=== PATIENT | female | born 1955 | race Caucasian/White ===

== ENCOUNTER → 2018-04-07 | Day surgery (SDC) | payer BC ==
[~2018-04-07] MED LIST: ADDERALL 20 MG20 MG PO; CRESTOR40 MG PO; FENTANYL CITRATE/PF 100MCG/2 ML INJ ONE; HYDROCODON-ACE1 EAC9 PO; MIDAZOLAM HCL 2 MG/2 ML VIAL ONE; OMEPRAZOLE20 MG PO; OR PHACO EYE KIT ONE; PREOP PHACO EYE KIT ONE; PRISTIQ ER100 MG PO; SIMETHICON40 MG/0.6 PO; ZOLPIDEM TARTRA10 MG PO
--- OUTSIDE RECORDS SUMMARY | 2018-04-07 09:30 | XMS REPORT | Clinical Summary ---
Author Author [facility] Organization [facility] Address Unknown Phone Unavailable Care Team Providers Care Safety Companion Name Role Phone Mumtaz Estrada MD PCP Unavailable Allergies Active Allergy Reactions Severity Noted Date Comments Iodine 08/09/2016 contrast Penicillin G 08/09/2016 Current Medications Prescription Sig. Disp. Refills Start End Date Status Date HYDROcodone-acetaminophen TK 2 TS PO TID 0 07/18/19 Active (NORCO) 10-325 mg per 17 tablet zolpidem (AMBIEN) 10 mg TK 1 T PO QD HS 5 06/29/19 Active tablet 17 PRISTIQ 100 mg 24 hr TK 1 T PO QD 11 07/16/19 Active tablet 17 omeprazole (PriLOSEC) 20 Take 20 mg by mouth Active MG capsule daily. Active Problems No known active problems Encounters Date Type Specialty Care Team Description 07/25/2017 [facility] Radiology Jimbo Tran MD Lumbar radiculopathy Encounter 07/24/2017 Transcribe Radiology Jimbo Tran MD Lumbar radiculopathy Orders (Primary Dx) 07/09/2017 Hospital Radiology Jimbo Tran MD Lumbar radiculopathy Encounter 07/04/2017 Transcribe Access Jimbo Tran MD Lumbar radiculopathy Orders (Primary Dx) 06/11/2017 Hospital Plastic Surgery Sony Wang MD Encounter 06/11/2017 Anesthesia Plastic Surgery Anjel Ojeda MD Event 06/11/2017 Procedure Pass Plastic Surgery 06/11/2017 Surgery Plastic Surgery Sony Wang MD VITRECTOMY, INTERNAL LIMITING MEMBRANE PEEL, GAS FLUID EXCHANE - RIGHT EYE 06/06/2017 Hospital Radiology Mumtaz Estrada MD Lumbar radiculopathy Encounter 06/06/2017 Ancillary Radiology Mumtaz Estrada MD Lumbar radiculopathy Orders 06/04/2017 Procedure Pass Radiology 06/04/2017 Transcribe Access Mumtaz Estrada MD Lumbar radiculopathy Orders (Primary Dx) after 04/06/2017 Family History Medical History Relation Name Comments Lung cancer Father Coronary artery disease Mother Dementia Mother Breast cancer Sister Relation Name Status Comments Father Mother Alive Sister Social History Tobacco Use Types Packs/Day Years Used Date Never Smoker Smokeless Tobacco: Never Used Alcohol Use Drinks/Week oz/Week Comments Yes Couple of glasses of wine daily Sex Assigned at Date Recorded Not on file Last Filed Vital Signs Vital Sign Reading Time Taken Blood Pressure 138/65 07/25/2017 10:16 AM PROFESSOR OF ARCHITECTURE Pulse 68 07/25/2017 11:04 AM PROFESSOR OF ARCHITECTURE Temperature 36.5 C (97.7 F) 07/25/2017 9:31 AM PROFESSOR OF ARCHITECTURE Respiratory Rate 13 07/25/2017 9:19 AM PROFESSOR OF ARCHITECTURE Oxygen Saturation 94% 07/25/2017 11:04 AM PROFESSOR OF ARCHITECTURE Inhaled Oxygen - - Concentration Weight - - Height 154.9 cm (5' 1") 06/11/2017 6:42 AM PROFESSOR OF ARCHITECTURE Body Mass Index - - Plan of Treatment Health Maintenance Due Date Last Done Comments CERVICAL CANCER SCREENING 1974 BREAST CANCER SCREENING 2003 COLON CANCER SCREENING 2003 SHINGRIX VACCINE (#1) 2003 ZOSTER VACCINE 2013 INFLUENZA VACCINE 12/31/2017 Procedures Procedure Name Priority Date/Time Associated Diagnosis Comments HC INJ EPID LUM/SACRAL Routine 07/25/2017 Lumbar radiculopathy Results for this UNI W IMG 9:22 AM PROFESSOR OF ARCHITECTURE procedure are in the results section. CT LUMBAR SPINE WO Routine 07/09/2017 Lumbar radiculopathy Results for this CONTRAST 3:38 PM PROFESSOR OF ARCHITECTURE procedure are in the results section. VITRECTOMY 06/11/2017 Macular hole of right eye 8:00 AM PROFESSOR OF ARCHITECTURE MRI LUMBAR SPINE WO Routine 06/06/2017 Lumbar radiculopathy Results for this CONTRAST 5:10 PM PROFESSOR OF ARCHITECTURE procedure are in the results section. after 04/06/2017 Results * IR Epidural Steroid Injection (07/25/2017 9:22 AM) Narrative Performed At EXAMINATION:IR EPIDURAL STEROID INJECTION [facility] CLINICAL HISTORY:M54.16 Radiculopathylumbar region, M54.16 COMPARISON:None. PROCEDURE After informed consent was obtained, the patient was placed in the prone position on the Fluoroscopy table. IV moderate conscious sedation was administered by means of intravenous injection of Versed and Fentanyl. Continuous monitoring of the vital signs was carried out under my direct supervision during the procedure, and subsequently in the recovery room until the patient was discharged. The patient tolerated the conscious sedation well without side effects or negative outcomes. Face to face sedation time during the procedure was 15 minutes. The back was prepped and draped in the usual manner. Local anesthesia was made by infiltration with 1% Lidocaine. Utilizing real-timeFluoroscopic guidance, and sterile technique a Gauge 25 spinal needle was introduced into the rightneural foramen at the L5-I1gkxod. Injection of a small amount of Omnipaque 240 mg I/ml from a syringe connected to the hub of the needle by means of a short flexible tubing a, after the plunger was pulled back to ensure no air bubbles or blood was within the system, , confirmed the proper position of the needle tipwithin the foramen.No contrast was seen entering the thecal sac or any blood vessels. A mixture of 12mg of Dexamethazone and 1 ml ofBupivacaine 0.75 % was prepared in a small syringe. The syringe was attached by a short flexible tubing to the hub of the needle. The plunger was pulled back to ensure no fluid or blood return and to clear any bubbles in the hub of the needle.2 ml of the mixture were injected into the perineural / foraminal epidural space. The patient tolerated the procedure well without immediate side effects or complications. IMPRESSION: Uneventful fluoroscopically guided right L5-S1 transforaminal epidural steroid injection block of the right L5 nerve root. Total fluoroscopy time 31 seconds. 1 image was saved. [facility]-[id number] Procedure Note Hm Interface, Radiology Results Incoming - 07/28/2017 11:59 AM PROFESSOR OF ARCHITECTURE EXAMINATION: IR EPIDURAL STEROID INJECTION CLINICAL HISTORY: M54.16 Radiculopathy lumbar region, M54.16 COMPARISON: None. PROCEDURE After informed consent was obtained, the patient was placed in the prone position on the Fluoroscopy table. IV moderate conscious sedation was administered by means of intravenous injection of Versed and Fentanyl. Continuous monitoring of the vital signs was carried out under my direct supervision during the procedure, and subsequently in the recovery room until the patient was discharged. The patient tolerated the conscious sedation well without side effects or negative outcomes. Face to face sedation time during the procedure was 15 minutes. The back was prepped and draped in the usual manner. Local anesthesia was made by infiltration with 1% Lidocaine. Utilizing real-time Fluoroscopic guidance, and sterile technique a Gauge 25 spinal needle was introduced into the right neural foramen at the L5-S1 level. Injection of a small amount of Omnipaque 240 mg I/ml from a syringe connected to the hub of the needle by means of a short flexible tubing a, after the plunger was pulled back to ensure no air bubbles or blood was within the system, , confirmed the proper position of the needle tip within the foramen. No contrast was seen entering the thecal sac or any blood vessels. A mixture of 12 mg of Dexamethazone and 1 ml of Bupivacaine 0.75 % was prepared in a small syringe. The syringe was attached by a short flexible tubing to the hub of the needle. The plunger was pulled back to ensure no fluid or blood return and to clear any bubbles in the hub of the needle. 2 ml of the mixture were injected into the perineural / foraminal epidural space. The patient tolerated the procedure well without immediate side effects or complications. IMPRESSION: Uneventful fluoroscopically guided right L5-S1 transforaminal epidural steroid injection block of the right L5 nerve root. Total fluoroscopy time 31 seconds. 1 image was saved. [facility]-[id number] Performing Organization Address City/State/Zipcode Phone Number [facility] [address] [place] [address] * CT Lumbar Spine Wo Contrast (07/09/2017 3:38 PM) Narrative Performed At Study: CT LUMBAR SPINE WO CONTRAST. [facility] HISTORY: M54.16 Radiculopathylumbar region, RADICULOPATHY. COMPARISON:MRI lumbar spine 4494. TECHNIQUE: Multiple axial CT images of the lumbar spine performed without intravenous contrast. Sagittal and coronal reconstructions performed. CT imaging was performed with iterative reconstruction technique and/or automated exposure control to reduce radiation dose. FINDINGS: There are postoperative changes of posterolateral fusion with interpedicular screws and vertical rods at L3 and L4 and interbody fusion at L3-4 and L4-5. There is some osseous continuity of the interbody fusion. Laminectomy present at the level of L4. The lumbar lordosis is maintained. There is no significant subluxation. Vertebral body heights are within normal limits. At L1-2, the disc height is maintained without protrusions or extrusions. No canal foraminal stenosis. At L2-3, the disc height is maintained and there is a shallow disc bulge. No significant canal foraminal stenosis. At L3-4, there are postoperative changes as described. There appears to be a left hemilaminotomy. No canal or foraminal stenosis. At L4-5, there are postoperative changes. There is decompression of the canal. Some facet arthrosis present with moderate lateral foraminal stenosis. At L5/S1, the disc height is maintained without protrusions. Facet arthrosis is present. There is no canal stenosis. Mild bilateral foraminal stenosis present. Paravertebral soft tissues are unremarkable. Incidental finding of a right kidney stone measuring 10 mm. No obvious hydronephrosis. IMPRESSION: No significant canal stenosis. Moderate bilateral foraminal stenosis at L4-5. Nonobstructing 10 mm right kidney stone. [id number] Procedure Note Hm Interface, Radiology Results Incoming - 07/09/2017 4:09 PM PROFESSOR OF ARCHITECTURE Study: CT LUMBAR SPINE WO CONTRAST. HISTORY: M54.16 Radiculopathy lumbar region, RADICULOPATHY. COMPARISON:MRI lumbar spine 5018. TECHNIQUE: Multiple axial CT images of the lumbar spine performed without intravenous contrast. Sagittal and coronal reconstructions performed. CT imaging was performed with iterative reconstruction technique and/or automated exposure control to reduce radiation dose. FINDINGS: There are postoperative changes of posterolateral fusion with interpedicular screws and vertical rods at L3 and L4 and interbody fusion at L3-4 and L4-5. There is some osseous continuity of the interbody fusion. Laminectomy present at the level of L4. The lumbar lordosis is maintained. There is no significant subluxation. Vertebral body heights are within normal limits. At L1-2, the disc height is maintained without protrusions or extrusions. No canal foraminal stenosis. At L2-3, the disc height is maintained and there is a shallow disc bulge. No significant canal foraminal stenosis. At L3-4, there are postoperative changes as described. There appears to be a left hemilaminotomy. No canal or foraminal stenosis. At L4-5, there are postoperative changes. There is decompression of the canal. Some facet arthrosis present with moderate lateral foraminal stenosis. At L5/S1, the disc height is maintained without protrusions. Facet arthrosis is present. There is no canal stenosis. Mild bilateral foraminal stenosis present. Paravertebral soft tissues are unremarkable. Incidental finding of a right kidney stone measuring 10 mm. No obvious hydronephrosis. IMPRESSION: No significant canal stenosis. Moderate bilateral foraminal stenosis at L4-5. Nonobstructing 10 mm right kidney stone. [id number] Performing Organization Address City/State/Zipcode Phone Number [facility] [phone] [place] [address] * MRI Lumbar Spine Wo Contrast (06/06/2017 5:10 PM) Narrative Performed At Study:MRI LUMBAR SPINE WO CONTRAST [facility] History:M54.16 Radiculopathylumbar region, RADICULOPATHY COMPARISON: September 06, 2014 TECHNIQUE: Sagittal T1, T2, STIR, axial T1, T2 MR images of the lumbar spine obtained without IV contrast. FINDINGS: The last functional disc is presumed L5/S1 and the L5 level is marked on the sagittal T2 image number 8. There are postoperative changes of posterolateral L3 and L4 fusion with laminectomies at L4 and L5. There is interbody fusion at L3-4 and L4-5. Lumbar lordosis is maintained. There are no subluxations. The vertebral body heights are within normal limits. No acute marrow signal abnormalities present. L1-2: Normal. L2-3: No disc height loss. There is a shallow disc bulge. No canal foraminal stenosis. L3-4: Postoperative changes as mentioned. No canal or foraminal stenosis. L4-5: Postoperative changes as described. No thecal sac narrowing. Facet arthrosis result in stable moderate bilateral foraminal stenosis. L5/S1: Disc height is maintained without protrusions. Facet arthrosis present. No canal or foraminal stenosis. Visual spinal cord is normal in signal and volume. The conus terminates the level of L1. Cauda equina is within normal limits and is without clumping. Paravertebral soft tissues are unremarkable. No fluid collections are present. IMPRESSION: No significant canal stenosis. Stable moderate bilateral foraminal stenosis at L4-5 from facet arthrosis. [facility]-[id number] Procedure Note Interface, Radiology Results Incoming - 06/06/2017 5:21 PM PROFESSOR OF ARCHITECTURE Study:MRI LUMBAR SPINE WO CONTRAST History:M54.16 Radiculopathy lumbar region, RADICULOPATHY COMPARISON: September 06, 2014 TECHNIQUE: Sagittal T1, T2, STIR, axial T1, T2 MR images of the lumbar spine obtained without IV contrast. FINDINGS: The last functional disc is presumed L5/S1 and the L5 level is marked on the sagittal T2 image number 8. There are postoperative changes of posterolateral L3 and L4 fusion with laminectomies at L4 and L5. There is interbody fusion at L3-4 and L4-5. Lumbar lordosis is maintained. There are no subluxations. The vertebral body heights are within normal limits. No acute marrow signal abnormalities present. L1-2: Normal. L2-3: No disc height loss. There is a shallow disc bulge. No canal foraminal stenosis. L3-4: Postoperative changes as mentioned. No canal or foraminal stenosis. L4-5: Postoperative changes as described. No thecal sac narrowing. Facet arthrosis result in stable moderate bilateral foraminal stenosis. L5/S1: Disc height is maintained without protrusions. Facet arthrosis present. No canal or foraminal stenosis. Visual spinal cord is normal in signal and volume. The conus terminates the level of L1. Cauda equina is within normal limits and is without clumping. Paravertebral soft tissues are unremarkable. No fluid collections are present. IMPRESSION: No significant canal stenosis. Stable moderate bilateral foraminal stenosis at L4-5 from facet arthrosis. [facility]-[id number] Performing Organization Address City/State/Zipcode Phone Number [facility] [address] [place] [address] after 04/06/2017 Insurance Payer Benefit Subscriber ID Type Phone Address Plan / Group BCBS BCBS xxxxxxxxxxxx PPO CHOICE PPO/ALEK HENRY PPO
[2018-04-07 12:15] VITALS: BP 130/71
== END | disposition home or self-care (01) ==
LOC: OR 09:27
PROVIDERS: ATTEND Ophthalmology
DX: H25.11 Age-related nuclear cataract, right eye (principal); E78.5 Hyperlipidemia, unspecified; M19.90 Unspecified osteoarthritis, unspecified site; K21.9 Gastro-esophageal reflux disease without esophagitis; Z88.0 Allergy status to penicillin; Z91.041 Radiographic dye allergy status; F41.9 Anxiety disorder, unspecified; F32.9 Major depressive disorder, single episode, unspecified
CPT/HCPCS: 66984; J2250; V2632

== ENCOUNTER → 2018-04-28 | Day surgery (SDC) | payer BC ==
--- OUTSIDE RECORDS SUMMARY | 2018-04-28 10:18 | XMS REPORT | Clinical Summary ---
Author Author [facility] Address Unknown Phone Unavailable Care Team Providers Care Filler Shredder Name Role Phone Mumtaz Estrada MD PCP Unavailable Allergies Comments Active Allergy Reactions Severity Noted Date contrast Iodine 08/09/2016 Penicillin G 08/09/2016 Medications End Date Status Medication Sig Dispensed Refills Start Date Active HYDROcodone-acetaminophen TK 2 TS PO 0 (NORCO) 10-325 mg per TID 7 tablet Active zolpidem (AMBIEN) 10 mg TK 1 T PO QD 5 tablet HS 7 Active PRISTIQ 100 mg 24 hr TK 1 T PO QD 11 tablet 7 Active omeprazole (PriLOSEC) 20 Take 20 mg by 0 MG capsule mouth daily. Active Problems No known active problems Encounters Care Team Description Date Type Specialty Jimbo Tran MD Lumbar radiculopathy 07/25/2017 Hospital Radiology Encounter Jimbo Tran MD Lumbar radiculopathy (Primary Dx) 07/24/2017 Transcribe Radiology Orders Jimbo Tran MD Lumbar radiculopathy 07/09/2017 Hospital Radiology Encounter Jimbo Tran MD Lumbar radiculopathy (Primary Dx) 07/04/2017 Transcribe Access Orders Sony Wang MD VITRECTOMY, INTERNAL LIMITING MEMBRANE PEEL, GAS FLUID EXCHANE - RIGHT EYE 06/11/2017 Surgery Plastic Surgery Anjel Ojeda MD 06/11/2017 Anesthesia Plastic Surgery Event Sony Wang MD 06/11/2017 Hospital Plastic Surgery Encounter Mumtaz Estrada MD Lumbar radiculopathy 06/06/2017 Hospital Radiology Encounter Mumtaz Estrdaa MD Lumbar radiculopathy (Primary Dx) 06/04/2017 Transcribe Access Orders after 04/27/2017 Family History Medical History Relation Name Comments Lung cancer Father Coronary artery disease Mother Dementia Mother Breast cancer Sister Relation Name Status Comments Father Mother Alive Sister Social History Date Tobacco Use Types Packs/Day Years Used Never Smoker Smokeless Tobacco: Never Used Alcohol Use Drinks/Week oz/Week Comments Yes Couple of glasses of wine daily Sex Assigned at Date Recorded Not on file Industry Job Start Date Occupation Not on file Not on file Not on file Travel End Travel History Travel Start No recent travel history available. Last Filed Vital Signs Time Taken Vital Sign Reading 07/25/2017 10:16 AM YARD LOADER OPERATOR Blood Pressure 138/65 07/25/2017 11:04 AM YARD LOADER OPERATOR Pulse 68 07/25/2017 9:31 AM YARD LOADER OPERATOR Temperature 36.5 C (97.7 F) 07/25/2017 9:19 AM YARD LOADER OPERATOR Respiratory Rate 13 07/25/2017 11:04 AM YARD LOADER OPERATOR Oxygen Saturation 94% - Inhaled Oxygen - Concentration - Weight - 06/11/2017 6:42 AM YARD LOADER OPERATOR Height 154.9 cm (5' 1") - Body Mass Index - Plan of Treatment Health Maintenance Due Date Last Done Comments CERVICAL CANCER SCREENING 1974 BREAST CANCER SCREENING 2003 COLON CANCER SCREENING 2003 SHINGRIX VACCINE (1 of 2) 2003 ZOSTER VACCINE 2013 INFLUENZA VACCINE 12/31/2017 Procedures Comments Procedure Name Priority Date/Time Associated Diagnosis HC INJ EPID LUM/SACRAL Routine 07/25/2017 Lumbar radiculopathy UNI W IMG 9:22 AM YARD LOADER OPERATOR CT LUMBAR SPINE WO Routine 07/09/2017 Lumbar radiculopathy CONTRAST 3:38 PM YARD LOADER OPERATOR VITRECTOMY 06/11/2017 Macular hole of right eye 8:00 AM YARD LOADER OPERATOR MRI LUMBAR SPINE WO Routine 06/06/2017 Lumbar radiculopathy CONTRAST 5:10 PM YARD LOADER OPERATOR after 04/27/2017 Results * IR Epidural Steroid Injection (07/25/2017 9:22 AM YARD LOADER OPERATOR) Narrative Performed At EXAMINATION:IR EPIDURAL STEROID INJECTION [...] introduced into the rightneural foramen at the L5-L0ufasj. Injection of a small amount of Omnipaque [...] time 31 seconds. 1 image was saved. [facility]-[id number] Procedure Note Hm Interface, Radiology Results Incoming - 07/28/2017 11:59 AM YARD LOADER OPERATOR EXAMINATION: IR EPIDURAL STEROID INJECTION CLINICAL HISTORY: [...] time 31 seconds. 1 image was saved. [facility]-[id number] Performing Organization Address City/State/Zipcode Phone Number [facility] [address] [place] [address] * CT Lumbar Spine Wo Contrast (07/09/2017 3:38 PM YARD LOADER OPERATOR) Narrative Performed At Study: CT LUMBAR SPINE WO CONTRAST. [facility] HISTORY: M54.16 Radiculopathylumbar region, RADICULOPATHY. COMPARISON:MRI lumbar spine 5018. TECHNIQUE: [...] L4-5. Nonobstructing 10 mm right kidney stone. [id number] Procedure Note Hm Interface, Radiology Results Incoming - 07/09/2017 4:09 PM YARD LOADER OPERATOR Study: CT LUMBAR SPINE WO CONTRAST. HISTORY: [...] L4-5. Nonobstructing 10 mm right kidney stone. [id number] Performing Organization Address City/State/Zipcode Phone Number [facility] [address] [place] [address] * MRI Lumbar Spine Wo Contrast (06/06/2017 5:10 PM YARD LOADER OPERATOR) Narrative Performed At Study:MRI LUMBAR SPINE WO [...] foraminal stenosis at L4-5 from facet arthrosis. [facility]-[id number] Procedure Note Interface, Radiology Results Incoming - 06/06/2017 5:21 PM YARD LOADER OPERATOR Study:MRI LUMBAR SPINE WO CONTRAST History:M54.16 Radiculopathy [...] foraminal stenosis at L4-5 from facet arthrosis. [facility]-[id number] Performing Organization Address City/State/Zipcode Phone Number [facility] [address] [place] [address] after 04/27/2017 Insurance Payer Benefit Subscriber ID Type Phone Address Plan / Group BCBS BCBS xxxxxxxxxxxx PPO CHOICE PPO/ALEK HENRY PPO Advance Directives Patient has advance care planning documents on file. For more information, ariadna e contact: Gary Roach [address] [place] [address]
[2018-04-28 14:00] VITALS: BP 127/64
== END | disposition home or self-care (01) ==
LOC: OR 10:16
PROVIDERS: ATTEND Ophthalmology
DX: H25.12 Age-related nuclear cataract, left eye (principal); M54.2 Cervicalgia; M54.9 Dorsalgia, unspecified; E78.5 Hyperlipidemia, unspecified; Z88.0 Allergy status to penicillin; Z91.041 Radiographic dye allergy status; K21.9 Gastro-esophageal reflux disease without esophagitis
CPT/HCPCS: 66984; J2250; V2632